=== PATIENT | male | born 2000 | race Caucasian/White ===

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

== ENCOUNTER 2019-04-03 10:42 | Emergency (ER) | payer OTHER ==
[2019-04-03 10:55] VITALS: BP 122/81
--- NOTE | 2019-04-03 12:47 | UC ---
FLU HPI - HPI Summary HPI Summary: 2 DAYS OF FEVER, TMAX 102, NASAL CONGESTION, HEADACHE, BODY ACHES, SORE THROAT AND MILD COUGH. NO NAUSEA/VOMITING. - History of Current Complaint Chief Complaint: UCRespiratory Stated Complaint: SORE THROAT, AND FEVER Hx Obtained From: Patient Onset/Duration: Gradual Onset, Lasting Days, Still Present Severity Currently: Moderate Severity Initially: Moderate Pain Intensity: 2 Pain Scale Used: 0-10 Numeric Associated Signs & Symptoms: Positive: Fever, Myalgia, Cough, Sore Throat, Nasal Congestion - Allergy/Home Medications Allergies/Adverse Reactions: Allergies Allergy/AdvReac Type Severity Reaction Status Date / Time environmental Allergy Congestion Uncoded 04/03/19 10:55 Home Medications: Home Medications Acetaminophen [Mapap] 1,000 mg PO Q6HR PRN 04/03/19 [History Confirmed 04/03/19] Azelastine/Fluticasone CIELO(NF [Dymista(NF)] 1 spray INH DAILY PRN 04/03/19 [ History Confirmed 04/03/19] Doxylam/PE/Dm/Acetaminophen/GG [Mucinex Sinus-Max Dy-Nt Liqgel] 1 tab PO ONCE PRN 04/03/19 [History Confirmed 04/03/19] Levocetirizine Dihydrochloride [Xyzal] 1 tab PO DAILY 04/03/19 [History Confirmed 04/03/19] PMH/Surg Hx/FS Hx/Imm Hx Previously Healthy: Yes - Surgical History Surgical History: None Surgery Procedure, Year, and Place: none - Family History Known Family History: Positive: Diabetes - type 2 Negative: Cardiac Disease, Hypertension - Social History Alcohol Use: Weekly Substance Use Type: None Smoking Status (MU): Never Smoked Tobacco - Immunization History Most Recent Influenza Vaccination: 04/05/16 Review of Systems All Other Systems Reviewed And Are Negative: Yes Constitutional: Positive: Fever, Fatigue ENT: Positive: Sore Throat, Nasal Discharge, Sinus Congestion Respiratory: Positive: Cough Cardiovascular: Positive: Negative Gastrointestinal: Positive: Negative Musculoskeletal: Positive: Myalgia Neurological: Positive: Headache Physical Exam Triage Information Reviewed: Yes Appearance: Well-Nourished, Ill-Appearing - MILDLY Vital Signs: Initial Vital Signs Temp 98.7 F 04/03/19 10:48 Pulse 96 04/03/19 10:48 Resp 18 04/03/19 10:48 BP 122/81 04/03/19 10:48 Pulse Ox 99 04/03/19 10:48 Laboratory Tests 04/03/19 11:45 Group A Strep Rapid Negative Vital Signs Reviewed: Yes Eyes: Positive: Conjunctiva Clear ENT: Positive: Hearing grossly normal, Pharyngeal erythema, Nasal congestion, TMs normal, Tonsillar swelling Neck: Positive: Supple, Nontender, No Lymphadenopathy Respiratory Exam: Normal Cardiovascular: Positive: Tachycardia Abdomen Description: Positive: Soft Musculoskeletal: Positive: No Edema Neurological: Positive: Alert Psychological: Positive: Age Appropriate Behavior Skin: Negative: Rashes Diagnostics - Laboratory Lab Results: RAPID FLU NEG Flu Course/Dx - Differential Dx/Diagnosis Provider Diagnosis: Viral illness Discharge ED - Sign-Out/Discharge Documenting (check all that apply): Patient Departure All imaging exams completed and their final reports reviewed: No Studies - Discharge Plan Condition: Stable Disposition: HOME Patient Education Materials: Viral Syndrome (ED) Referrals: [facility] [Provider Group] - If Needed Additional Instructions: STREP NEG. FLU NEG. YOUR SYMPTOMS ARE LIKELY VIRALLY MEDIATED AND SHOULD RESOLVE ON THEIR OWN WITH TIME. NO INDICATION FOR ANTIBIOTICS AT PRESENT. REST, HYDRATE, OTC MEDS NEEDED. SEEK FOLLOW-UP IF YOU ARE NOT IMPROVING OVER THE NEXT 1-2 WEEKS. USE OTC AFRIN FOR NASAL CONGESTION. 2 SPRAYS IN EACH NOSTRIL TWICE DAILY NEEDED. DO NOT USE FOR MORE THAN 3-4 DAYS IN A ROW TO PREVENT DEVELOPING REBOUND CONGESTION. CALL ME HERE ON TUESDAY MORNING IF YOU HAVE ANY QUESTIONS OR CONCERNS ABOUT THE COURSE OF YOUR ILLNESS. - Billing Disposition and Condition Condition: STABLE Disposition: Home
[2019-04-03 16:00] LABS: Influenza A Molecular NEGATIVE (Negative); Influenza B Molecular NEGATIVE (Negative)
== END 2019-04-03 12:35 | disposition home or self-care (01) ==
LOC: UCEAST 10:42
DX: B34.9 Viral infection, unspecified (principal); E11.9 Type 2 diabetes mellitus without complications
CPT/HCPCS: 87651; 99211; G0463